=== PATIENT | male | born 1965 | race African-American/Black ===

== ENCOUNTER → 2020-07-20 | Outpatient (CLI) | payer MEDICAID ==
[~2020-07-20] MED LIST: ASPI-1497 PO; CHLO25TA2 PO; MULT-1116 PO; PRAV40TA58 PO
== END | disposition home or self-care (01) ==
LOC: LAB 08:44
PROVIDERS: ATTEND Orthopaedic Surgery
DX: Z01.812 Encounter for preprocedural laboratory examination (principal); Z20.828 Contact with and (suspected) exposure to other viral communicable diseases; M94.262 Chondromalacia, left knee
CPT/HCPCS: C9803; U0003

== ENCOUNTER 2020-07-24 10:00 | Day surgery (SDC) | payer MEDICAID ==
[~2020-07-24] VITALS: Ht 190.5 cm; Wt 145.1 kg
[~2020-07-24 10:00] MED LIST changes: +LACTATED RINGERS 1,000 ML IV SCH
[2020-07-24] MEDS ORDERED: LACTATED RINGERS 1,000 ML IV SCH (10:45)
[2020-07-24] MEDS ORDERED: MORPHINE SULFATE/PF 1MG/ML 10ML AMP ONE (11:27)
[2020-07-24] MEDS ORDERED: EPINEPHRINE 1:1000 1 MG/ML AMP ONE (11:27)
[2020-07-24] MEDS ORDERED: BUPIVACAINE/EPINEPH/PF 0.25%/0.0005 10ML ONE (11:27)
[2020-07-24] MEDS ORDERED: KETAMINE HCL 50 MG/ML 10ML ONE (11:39)
[2020-07-24] MEDS ORDERED: FENTANYL CITRATE/PF 50MCG/ML 2ML VIAL ONE ×2 (11:40→12:05)
[2020-07-24] MEDS ORDERED: PROPOFOL 200MG/20ML VIAL IV ONE ×2 (11:40→11:45)
[2020-07-24] MEDS ORDERED: MIDAZOLAM HCL 2 MG/2 ML VIAL ONE (11:41)
[2020-07-24] MEDS ORDERED: LIDOCAINE HCL/PF 1% 10 MG/ML 5ML VIAL ONE (11:42)
[2020-07-24] MEDS ORDERED: CEFAZOLIN SODIUM 1000MG/VIAL ONE ×2 (11:51→11:52)
[2020-07-24] MEDS ORDERED: PHENYLEPHRINE HCL 10 MG/ML 1ML (IV VIAL) IV ONE (12:08)
[2020-07-24] MEDS ORDERED: HYDROMORPHONE HCL/PF 2MG/ML CPJ IV PRN (12:45)
[2020-07-24] MEDS ORDERED: ONDANSETRON HCL 4MG/2ML INJ IV PRN (12:45)
[2020-07-24] MEDS ORDERED: FENTANYL CITRATE/PF 50MCG/ML 2ML VIAL IV PRN (12:45)
[2020-07-24] MEDS ORDERED: MEPERIDINE HCL/PF 25MG/ML CPJ IV PRN (12:45)
[2020-07-24] MEDS ORDERED: EPHEDRINE SULFATE 50MG/ML VIAL ONE (12:52)
[2020-07-24] MEDS ORDERED: ONDANSETRON HCL 4MG/2ML INJ ONE (12:52)
[2020-07-24] MEDS ORDERED: DEXAMETHASONE 4MG/ML 1ML VIAL ONE (12:52)
[2020-07-24] MEDS ORDERED: KETOROLAC 30MG/ML VIAL ONE (12:53)
[2020-07-24] MEDS ORDERED: HYDROCODONE/ACETAMINOPHEN 10/325MG TABLET PO PRN (13:00)
[2020-07-24 14:13] VITALS: BP 153/91
== END 2020-07-24 15:35 | disposition home or self-care (01) ==
LOC: OR 10:00
PROVIDERS: ATTEND Orthopaedic Surgery
DX: S83.242A Other tear of medial meniscus, current injury, left knee, initial encounter (principal); M94.262 Chondromalacia, left knee; M65.88 Other synovitis and tenosynovitis, other site; G89.29 Other chronic pain; I10 Essential (primary) hypertension; E78.00 Pure hypercholesterolemia, unspecified; K21.9 Gastro-esophageal reflux disease without esophagitis; E66.9 Obesity, unspecified; Z79.82 Long term (current) use of aspirin; Z79.899 Other long term (current) drug therapy; Z98.890 Other specified postprocedural states; Z68.41 Body mass index [BMI] 40.0-44.9, adult; X58.XXXA Exposure to other specified factors, initial encounter; Y93.89 Activity, other specified; Y92.89 Other specified places as the place of occurrence of the external cause; Y99.8 Other external cause status
CPT/HCPCS: 29881; 88305; 88311; 97116; 97161; J0171; J0690; J1100; J1885; J2250; J2274; J2370; J2405; J2704; J3010; J3490